=== PATIENT | female | born 1950 | race Caucasian/White ===

== ENCOUNTER → 2018-07-18 08:37 | Outpatient (CLI) | payer MEDICARE | END | disposition home or self-care (01) | LOC: D.MRI 08:30 | DX: M50.30 Other cervical disc degeneration, unspecified cervical region (principal) ==

== ENCOUNTER 2018-08-03 19:00 | Outpatient (CLI) | payer MEDICARE | END 2018-08-03 23:59 | disposition home or self-care (01) | LOC: D.MAMMO 19:00 | DX: Z12.31 Encounter for screening mammogram for malignant neoplasm of breast (principal) ==

== ENCOUNTER → 2019-09-20 09:00 | Outpatient (CLI) | payer MEDICARE | END | disposition home or self-care (01) | LOC: D.MAMMO 09:00 | PROVIDERS: ATTEND Family Medicine | DX: Z00.00 Encounter for general adult medical examination without abnormal findings (principal) ==

== ENCOUNTER → 2020-03-09 11:58 | Outpatient (CLI) | payer MEDICARE ==
[~2020-03-09 11:58] MED LIST: OMEPRAZOLE20 M1 PO
== END | disposition home or self-care (01) ==
LOC: D.LABREF 11:58
PROVIDERS: ATTEND Neurological Surgery
DX: Z11.59 Encounter for screening for other viral diseases (principal)

== ENCOUNTER 2020-03-12 07:40 | Day surgery (SDC) | payer MEDICARE ==
[2020-03-09 12:04] LABS: HEMATOCRIT 40.4 % (36.0-48.0); HEMOGLOBIN 13.5 g/dL (12-16); MCH 28.5 pg (26.0-34.0); MCHC 33.4 g/dL (31.0-37.0); MCV 85.2 fL (80.0-100.0); MEAN PLATELET VOLUME 9.2 fL (7.4-10.4); RBC 4.74 10x6/uL (4.00-5.40); RDW 12.6 % (11.5-14.5); WBC 6.1 10x3/uL (4.8-10.8)
[~2020-03-12] VITALS: Ht 157.5 cm; Wt 63.6 kg
[2020-03-12] VITALS (7 sets, daily range): BP systolic 106–134; BP diastolic 59–74; Ht 157.5 cm; Wt 63.6 kg
--- NOTE | ~2020-03-12 | OP ---
PATIENT NAME: MEÑO BOOTH MEDICAL RECORD: [id number] :48 LOCATION:D.OPS ADMISSION DATE: SURGEON: JASPER ROQUE MD DATE OF OPERATION: 03/12/2020 PREOPERATIVE DIAGNOSES: Osteophyte formation and disc herniation at C6-C7 with bilateral C7 radiculopathy. POSTOPERATIVE DIAGNOSES: Osteophyte formation and disc herniation at C6-C7 with bilateral C7 radiculopathy. PROCEDURE: Anterior cervical discectomy and fusion at C6-C7 with separate PEEK interbody cage and Zavation anterior cervical plate and screws, and Clover bone allograft with stem cells. SURGEON: Jasper Roque MD FISH HATCHERY WORKER: Theodore Hdez APN DESCRIPTION AND TECHNIQUE: After induction of general endotracheal anesthesia, the patient was positioned supine on the operating table. Neck was prepped and draped in usual sterile fashion. Fluoroscopic x-ray and freer localized the C6-C7 interspace. After infiltration of 1:100,000 epinephrine with 1% lidocaine, a transverse skin incision was carried out from the midline to the sternocleidomastoid muscle. The platysma was divided with #15 blade. Using blunt and sharp dissection with Metzenbaum scissors, I proceeded in the avascular plane medial to the carotid sheath. Following this, the C6-C7 interspace was identified with fluoroscopic x-ray and a spinal needle. Longus colli muscles were elevated from bodies of C5, C6, and C7. Lawrence distracting pins were placed in the bodies of C6 and C7. Osteophytes removed anteriorly with Adson rongeurs. Following this, the annulus was incised with a #11 blade. The cartilaginous endplates were removed with curettes and pituitary rongeurs. Under microscopic illumination, a [place] drill was used to remove osteophytes posteriorly. The posterior longitudinal ligament was removed with Cloward rongeurs. Following this, the dura was decompressed well. Meticulous hemostasis was maintained throughout the wound. A PEEK interbody cage, which was a separate cage was placed in the disc space under distraction. Prior to this, it was filled with Clover bone allograft with stem cells. Next, a separate anterior cervical plate and screws from [facility] was used to span the C6-C7 interspace. Self-drilling screws were placed through the holes in the plate. Locking cams were tightened down over the screw heads. Good position of the hardware was confirmed with fluoroscopic x-ray. The platysma and the subdermal layer was closed with interrupted 4-0 Vicryl suture. The skin was reapproximated with Steri-Strips and benzoin. A sterile dressing was applied to the wound. The patient was awakened in good condition and taken to recovery. All counts were reported as correct. Estimated blood loss was minimal. TRANSINT:[id number] Voice Confirmation ID: [id number] DOCUMENT ID: [id number] OPERATIVE REPORT [id number] MEÑO BOOTH JOHN MD CC: [id number] DICTATION DATE: 03/30/20 0953 INSTALLER: 03/30/20 1216 [facility] 03/13/[address] [id number]
[2020-03-12] MEDS ORDERED: VITAMIN B-1250 MG PO (08:21)
--- NOTE | 2020-03-12 14:18 | NUR ---
1015 OPA DISCONTINUED. PATIENT AROUSABLE AND MAINTAINING PATENT AIRWAY
--- NOTE | 2020-03-12 17:19 | NUR ---
PT REPORTS SHIVERING AND STATES THAT SHE HAS HAD THIS HAPPEN BEFORE AFTER RECIEVING ANESTHESIA AND THAT SHE WILL START TO "VIOLENTLEY SHAKE". ANALYTICS LEADER FOR ANESTHESIA PAGED TO NOTIFY. WILL AWAIT RETURN PHONE CALL AND FURTHER ORDERS.
--- NOTE | 2020-03-12 19:30 | NUR ---
PT SITTING UP IN BED WITHOUT DISTRESS, AOX4. AT BEDSIDE. SCDS ON BILAT. IV LEFT FA INFUSING D5 1/2NS @ 50. NECK INCISION CDI. PT ASSISTED UP TO BATHROOM TO VOID AND BACK TO BED. CALLED HEART COORDINATOR TO GET PT SOFT COLLAR FOR AMBULATING. PT DENIES OTHER NEEDS. WILL CTM
--- NOTE | 2020-03-12 21:45 | NUR ---
PT STATES PAIN 6/10, REQUESTED AND GIVEN MORPHINE FOR PAIN. WILL CTM
--- NOTE | 2020-03-12 22:00 | NUR ---
PT ASSISTED UP TO BATHROOM WITH SBA ONLY AND BACK TO BED
[2020-03-13] VITALS: BP 104/58
--- NOTE | 2020-03-13 00:15 | NUR ---
PLACED SOFT COLLAR ON PT, ASSISTED TO BATHROOM AND BACK TO BED. DENIES OTHER NEEDS, WILL CTM
[2020-03-13 04:00] VITALS: BP 114/59
[2020-03-13 06:00] LABS: BASOPHILS 0.1 % (0-2); EOSINOPHILS 0 % (0-7); HEMATOCRIT 34.7 % (36.0-48.0); HEMOGLOBIN 11.6 g/dL (12-16); IMMATURE GRANULOCYTES 0.3 % (0-5); LYMPHOCYTES 9.4 % (15-50); MCH 28.6 pg (26.0-34.0); MCHC 33.4 g/dL (31.0-37.0); MCV 85.7 fL (80.0-100.0); MEAN PLATELET VOLUME 9.4 fL (7.4-10.4); MONOCYTES 3.4 % (2-11); NEUTROPHILS 86.8 % (40-80); PLATELET COUNT 245 10x3/uL (130-400); RBC 4.05 10x6/uL (4.00-5.40); RDW 12.5 % (11.5-14.5); WBC 13.6 10x3/uL (4.8-10.8)
[2020-03-13 06:30] LABS: ALBUMIN 3.2 g/dL (3.4-5.0); ALKALINE PHOSPHATASE 56 U/L (30-120); ALT (SGPT) 44 U/L (10-68); BILIRUBIN - TOTAL 0.32 mg/dL (0.2-1.3); CALC OSMOLALITY 280 mosm/kg (275-300); CALCIUM 8.6 mg/dL (8.5-10.1); CHLORIDE - SERUM 106 mmol/L (98-107); CREATININE - SERUM 0.8 mg/dL (0.6-1.3); GLUCOSE 183 mg/dL (74-106); POTASSIUM - SERUM 3.9 mmol/L (3.5-5.1); PROTEIN - SERUM 6.7 g/dL (6.4-8.2); SODIUM 139 mmol/L (136-145); UREA NITROGEN 6 mg/dL (7-18); eGFR NON AFRICAN AMERICAN 75 mL/min (90-120)
--- NOTE | 2020-03-13 07:40 | NUR ---
PT RESTING IN BED WITH EYES OPEN, AT THE BEDSIDE. IV LOCATED TO LEFT FOREARM RUNNING D5 1/2NS @ 50. SOFT COLAR IN PLACE. NO CURRENT S/S OF DISTRESS AT THIS TIME, DENIES NEEDS, WILL CONT TO MONITOR.
[2020-03-13 09:08] VITALS: BP 108/57
[2020-03-13] MEDS ORDERED: ULTRAM50 MG PO (09:26)
--- NOTE | 2020-03-13 11:15 | NUR ---
PT DC`D VIA WHEELCHAIR, HOSPITAL STAFF, AND . NO CONCERNS RELATED TO D/C.
== END 2020-03-13 11:59 | disposition home or self-care (01) ==
LOC: D.OPS 07:40 → D.PAN 09:45 → D.MS 14:09 → D.OPS 03-13 11:59
PROVIDERS: Anesthesiology; Family Medicine; ATTEND Neurological Surgery
DX: M54.12 Radiculopathy, cervical region (principal); M53.82 Other specified dorsopathies, cervical region